=== PATIENT | male | born 1990 | race Caucasian/White ===

== ENCOUNTER 2019-02-09 04:48 | Emergency (ER) | payer SELFPAY ==
[~2019-02-09] VITALS: Ht 167.6 cm; Wt 68.0 kg
--- NOTE | 2019-02-09 04:55 | NUR ---
PT BIBSELF COMPLAINING OF CHEST PAIN X 30 MIN. PT STATES 5/10 PAIN, RADIATING TO L ARM. PT RESPIRATIONS EVEN AND UNLABORED. PT AXO4. 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
[2019-02-09 06:06] LABS: BASOPHILS % (AUTO) 0.7 % (0.0-2.0); EOSINOPHILS % (AUTO) 1.7 % (0.0-6.0); HEMATOCRIT 45 % (39-51); HEMOGLOBIN 15.9 g/dL (13.5-17.5); LYMPHOCYTES # (AUTO) 1.4 /CMM (0.8-4.8); LYMPHOCYTES % (AUTO) 26.1 % (20.0-44.0); MEAN CORPUSCULAR HGB CONC 35 g/dl (31.0-36.0); MEAN CORPUSCULAR VOLUME 88 fL (80-96); MONOCYTES # (AUTO) 0.4 /CMM (0.1-1.30); MONOCYTES % (AUTO) 8.2 % (2.0-12.0); NEUTROPHILS # (AUTO) 3.3 /CMM (1.8-8.9); NEUTROPHILS % (AUTO) 63.3 % (43.0-81.0); PLATELET COUNT (AUTO) 199 /CMM (150-450); RED BLOOD CELL COUNT(AUTO) 5.11 MIL/uL (4.5-6.0); WHITE BLOOD COUNT (AUTO) 5.2 K/uL (4.3-11.0)
[2019-02-09 06:23] LABS: CARBON DIOXIDE 26 mmol/L (21-32); CHLORIDE 104 mmol/L (98-107); CREATININE 1.1 mg/dL (0.6-1.3); GLUCOSE 125 mg/dL (74-106); POTASSIUM 3.4 mmol/L (3.5-5.1); SODIUM SERUM 141 mmol/L (136-145); UREA NITROGEN, BLOOD 12 mg/dL (7-18)
[2019-02-09] MEDS ORDERED: IV NS 0.9% 250 ML IV ONE (06:26)
[2019-02-09] MEDS ORDERED: IOHEXOL-350 100 ML VIAL IV ONE (06:26)
[2019-02-09] MEDS ORDERED: CT SWABBABLE VALVE TRANS SET 1 EA INFUS.SET MC ONE (06:26)
--- NOTE | 2019-02-09 06:32 | NUR ---
PT RESTING BED COMFORTABLY, NAD NOTED. WILL CONTINUE TO MONITOR.
--- NOTE | 2019-02-09 06:35 | NUR ---
PT TAKEN TO CT.
--- NOTE | 2019-02-09 06:50 | NUR ---
PT RETURNED FROM CT.
--- NOTE | 2019-02-09 07:20 | NUR ---
REPORT GIVEN TO OLAF SWAIN FOR [facility].
--- NOTE | 2019-02-09 07:30 | NUR ---
RECEIVED REPORT FROM WILIAM JUAREZ FOR [facility]. PT IS AAOX4, NOT IN RESPIRATORY DISTRESS, V/S STABLE, KEPT RESTED AND COMFORTABLE, WILL CONTINUE TO MONITOR.
--- NOTE | 2019-02-09 08:28 | NUR ---
IV removed. Catheter intact and site benign. Pressure and 4x4 applied to site. No bleeding noted. Patient discharged to home in stable condition. Written and verbal after care instructions given. Patient verbalizes understanding of instruction.
[2019-02-09 08:29] VITALS: BP 140/77
== END 2019-02-09 08:30 | disposition home or self-care (01) ==
LOC: ER 04:52
DX: R07.89 Other chest pain (principal); R06.02 Shortness of breath; Z88.1 Allergy status to other antibiotic agents; Z60.2 Problems related to living alone
CPT/HCPCS: 36415; 71045; 71275; 80048; 84484; 85025; 85378; 93005 ×2; 99284; J7050; Q9967

== ENCOUNTER 2019-05-03 14:15 | Emergency (ER) | payer SELFPAY ==
--- NOTE | 2019-05-03 14:25 | NUR ---
CALLED IN WAITING ROOM, NO ANSWER.
== END 2019-05-03 14:44 | disposition left against medical advice (07) ==
LOC: ER 14:15
DX: Z53.21 Procedure and treatment not carried out due to patient leaving prior to being seen by health care provider (principal); T14.8XXA Other injury of unspecified body region, initial encounter; W57.XXXA Bitten or stung by nonvenomous insect and other nonvenomous arthropods, initial encounter; Y93.89 Activity, other specified; Y92.89 Other specified places as the place of occurrence of the external cause; Y99.8 Other external cause status